=== PATIENT | female | born 1960 | race Caucasian/White ===

== ENCOUNTER 2017-07-22 15:53 | Emergency (ER) | payer MEDICARE, MEDICAID ==
[~2017-07-22] VITALS: Ht 144.8 cm; Wt 66.0 kg
[2017-07-22 19:35] LABS: BASOPHILS % 0.6 % (0.0-2.0); EOSINOPHILS % 1.2 % (0.0-5.0); HEMATOCRIT. 38.6 % (36.0-48.0); HEMOGLOBIN. 13.4 g/dL (12.0-16.0); MEAN CORPUSCULAR HEMOGLOBIN 29.7 pg (28.0-32.0); MEAN CORPUSCULAR VOLUME 85.7 fL (81.0-99.0); MEAN PLATELET VOLUME 9.7 fl (7.4-10.4); MONOCYTES % 5.5 % (2.0-8.0); NEUTROPHILS % 68.7 % (40.0-76.0); PLATELET 295 x1000/uL (130-400); RED BLOOD CELL COUNT 4.51 mill/uL (4.2-5.4); RED CELL DISTRIBUTION WIDTH 13.8 % (11.6-14.6)
[2017-07-22 19:36] LABS: CHLORIDE 105 mEq/L (98-107)
[2017-07-22] MEDS ORDERED: KETOROLAC 30MG/ML VIAL IV STA (21:12)
[2017-07-22] MEDS ORDERED: SODIUM CHLORIDE 0.9% 1,000 ML IV ONE (21:12)
[2017-07-22] MEDS ORDERED: ONDANSETRON HCL 4MG/2ML VIAL IV STA (21:12)
[2017-07-22 23:05] VITALS: BP 129/76
== END 2017-07-23 00:06 | disposition home or self-care (01) ==
LOC: ER 15:53
DX: R51 Headache (principal); I10 Essential (primary) hypertension; E11.9 Type 2 diabetes mellitus without complications; E78.5 Hyperlipidemia, unspecified; E78.00 Pure hypercholesterolemia, unspecified
CPT/HCPCS: 36415; 80048; 83690; 85025; 96361; 96374; 96375; 99285; J1885; J2405; J7030

== ENCOUNTER 2017-08-22 08:57 | Emergency (ER) | payer MEDICARE, MEDICAID ==
[~2017-08-22] VITALS: Ht 154.9 cm; Wt 68.0 kg
[2017-08-22] MEDS ORDERED: MORPHINE SULFATE 4 MG/ML CPJ (NOT FOR IM USE) IV STA (09:37)
[2017-08-22] MEDS ORDERED: SODIUM CHLORIDE 0.9% 1,000 ML IV ONE (09:37)
[2017-08-22] MEDS ORDERED: KETOROLAC 30MG/ML VIAL IV STA (09:37)
[2017-08-22] MEDS ORDERED: ONDANSETRON HCL 4MG/2ML VIAL IV STA (09:37)
[2017-08-22 10:10] LABS: BASOPHILS % 0.3 % (0.0-2.0); EOSINOPHILS % 0.6 % (0.0-5.0); HEMATOCRIT. 41.4 % (36.0-48.0); HEMOGLOBIN. 14.1 g/dL (12.0-16.0); LYMPHOCYTES % 10.8 % (20.0-50.0); MEAN CORPUSCULAR HEMOGLOBIN 28.8 pg (28.0-32.0); MEAN CORPUSCULAR VOLUME 84.9 fL (81.0-99.0); MEAN PLATELET VOLUME 9.3 fl (7.4-10.4); MONOCYTES % 5.7 % (2.0-8.0); NEUTROPHILS % 82.6 % (40.0-76.0); PLATELET 264 x1000/uL (130-400); RED BLOOD CELL COUNT 4.88 mill/uL (4.2-5.4); RED CELL DISTRIBUTION WIDTH 13.8 % (11.6-14.6)
[2017-08-22 10:13] LABS: CHLORIDE 103 mEq/L (98-107)
[2017-08-22 10:41] LABS: CLARITY URINE CLOUDY (CLEAR); COLOR URINE DARK YELLOW (YELLOW); KETONES URINE TRACE (NEGATIVE); LEUKOCYTE ESTERASE URINE TRACE (NEGATIVE); NITRITE URINE NEGATIVE (NEGATIVE); OCCULT BLOOD URINE NEGATIVE (NEGATIVE); PROTEIN URINE 2+ (NEGATIVE)
[2017-08-22 12:00] VITALS: BP 122/71
== END 2017-08-22 12:39 | disposition home or self-care (01) ==
LOC: ER 09:53
DX: G43.909 Migraine, unspecified, not intractable, without status migrainosus (principal); N39.0 Urinary tract infection, site not specified; E78.00 Pure hypercholesterolemia, unspecified; I10 Essential (primary) hypertension; E11.9 Type 2 diabetes mellitus without complications
CPT/HCPCS: 36415; 70450; 71045; 80053; 81003; 82962; 83880; 85025; 85651; 93005; 96361; 96374; 96375; 99285; J1885; J2270; J2405; J7030

== ENCOUNTER 2019-06-11 09:01 | Emergency (ER) | payer MEDICARE, MEDICAID ==
[~2019-06-11] VITALS: Ht 154.9 cm; Wt 69.0 kg
[2019-06-11] MEDS ORDERED: KETOROLAC 60MG/2ML VIAL IM STA (11:19)
[2019-06-11] MEDS ORDERED: ONDANSETRON 4MG ODT PO STA (11:19)
[2019-06-11 12:47] LABS: HEMATOCRIT. 39.3 % (36.0-48.0); HEMOGLOBIN. 13.7 g/dL (12.0-16.0); LYMPHOCYTES % 28.5 % (20.0-50.0); MEAN CORPUSCULAR HEMOGLOBIN 29.4 pg (28.0-32.0); MEAN CORPUSCULAR VOLUME 84.4 fL (81.0-99.0); MEAN PLATELET VOLUME 10.5 fl (7.4-10.4); MONOCYTES % 8.4 % (2.0-8.0); NEUTROPHILS % 60.1 % (40.0-76.0); PLATELET 209 x1000/uL (130-400); RED BLOOD CELL COUNT 4.65 mill/uL (4.2-5.4)
[2019-06-11 12:53] LABS: CHLORIDE 106 mEq/L (98-107)
[2019-06-11 13:41] VITALS: BP 132/65
== END 2019-06-11 13:43 | disposition home or self-care (01) ==
LOC: ER 09:01
DX: R51 Headache (principal); E11.9 Type 2 diabetes mellitus without complications; E78.00 Pure hypercholesterolemia, unspecified; I10 Essential (primary) hypertension
CPT/HCPCS: 36415; 70450; 80053; 85025; 96372; 99284; J1885; Q0162

== ENCOUNTER → 2022-05-22 | Outpatient (CLI) | payer MEDICARE, MEDICAID ==
[~2022-05-22] MED LIST: ASPI-1497 MT; ATOR40TA70 MT
[2022-05-22 08:56] LABS: BASOPHILS % 0.3 % (0.0-2.0); EOSINOPHILS % 3.4 % (0.0-5.0); HEMATOCRIT. 37.9 % (36.0-48.0); HEMOGLOBIN. 12.5 g/dL (12.0-16.0); LYMPHOCYTES % 28.8 % (20.0-50.0); MEAN CORPUSCULAR HEMOGLOBIN 27.9 pg (28.0-32.0); MEAN CORPUSCULAR VOLUME 84.8 fL (81.0-99.0); MEAN PLATELET VOLUME 9.6 fl (7.4-10.4); MONOCYTES % 6.7 % (2.0-8.0); NEUTROPHILS % 60.8 % (40.0-76.0); PLATELET 220 x1000/uL (130-400); RED BLOOD CELL COUNT 4.48 mill/uL (4.2-5.4); RED CELL DISTRIBUTION WIDTH 14.2 % (11.6-14.6)
[2022-05-22 09:17] LABS: CHLORIDE 110 mEq/L (98-107)
[2022-05-22 09:27] LABS: HDL CHOLESTEROL 66 mg/dL (40-59); LDL CHOLESTEROL 94 mg/dL (5-100)
== END | disposition home or self-care (01) ==
LOC: RAD 08:13
PROVIDERS: ATTEND Internal Medicine Interventional Cardiology
DX: J98.11 Atelectasis (principal); I25.10 Atherosclerotic heart disease of native coronary artery without angina pectoris; I21.4 Non-ST elevation (NSTEMI) myocardial infarction
CPT/HCPCS: 36415; 71045; 80048; 80061; 83735; 83880; 85025

== ENCOUNTER → 2022-06-03 | Outpatient (CLI) | payer MEDICARE, MEDICAID | END | disposition home or self-care (01) | LOC: LAB 08:59 | PROVIDERS: ATTEND Internal Medicine Interventional Cardiology | DX: I25.10 Atherosclerotic heart disease of native coronary artery without angina pectoris (principal) | CPT/HCPCS: 36415; 80048; 83735; 83880 ==

== ENCOUNTER 2023-04-01 09:35 | Emergency (ER) | payer MEDICARE, MEDICAID ==
[~2023-04-01] VITALS: Ht 144.8 cm; Wt 63.5 kg
[~2023-04-01 09:35] MED LIST changes: +AMLO2.5T45 MT; -ASPI-1497 MT; +ATOR-2 MT; -ATOR40TA70 MT; +BISA10SU62 RC; +CLOP-31 MT; +EZET10TA81 MT; +GABA-529 PO; +METO-385 PO; +NITR100C11 PO; +PANT40TA51 PO; +TOPUD PO
[2023-04-01 09:37] VITALS: O2SAT 100
[2023-04-01 11:46] VITALS: BP 124/84; PULSE 89; RESP 16; TEMP 98.9
== END 2023-04-01 11:49 | disposition home or self-care (01) ==
LOC: ER 09:57
DX: J06.9 Acute upper respiratory infection, unspecified (principal); R09.89 Other specified symptoms and signs involving the circulatory and respiratory systems; E11.9 Type 2 diabetes mellitus without complications; E78.00 Pure hypercholesterolemia, unspecified; I10 Essential (primary) hypertension; F19.90 Other psychoactive substance use, unspecified, uncomplicated; Z86.73 Personal history of transient ischemic attack (TIA), and cerebral infarction without residual deficits; Z98.890 Other specified postprocedural states
CPT/HCPCS: 71045; 93005; 99283

== ENCOUNTER 2023-08-21 14:23 | Emergency (ER) | payer MEDICARE, MEDICAID ==
[~2023-08-21] VITALS: Ht 157.5 cm; Wt 81.0 kg
[~2023-08-21 14:23] MED LIST changes: +NITR0.4T SL
[2023-08-21 14:34] VITALS: O2SAT 97
[2023-08-21 14:56] LABS: BASOPHILS % 0.4 % (0.0-2.0); EOSINOPHILS % 2.4 % (0.0-5.0); HEMATOCRIT. 37.4 % (36.0-48.0); HEMOGLOBIN. 12.6 g/dL (12.0-16.0); LYMPHOCYTES % 29.6 % (20.0-50.0); MEAN CORPUSCULAR HEMOGLOBIN 29.5 pg (28.0-32.0); MEAN CORPUSCULAR HGB CONC 33.7 g/dL (31.0-37.0); MEAN CORPUSCULAR VOLUME 87.4 fL (81.0-99.0); MEAN PLATELET VOLUME 10.1 fl (7.4-10.4); MONOCYTES % 7.5 % (2.0-8.0); NEUTROPHILS % 60.1 % (40.0-76.0); PLATELET 260 x1000/uL (130-400); RED BLOOD CELL COUNT 4.28 mill/uL (4.2-5.4); RED CELL DISTRIBUTION WIDTH 14.2 % (11.6-14.6); WHITE BLOOD COUNT 8.7 x1000/uL (4.5-11.0)
[2023-08-21 15:00] LABS: CARBON DIOXIDE 25 mEq/L (21-32); CHLORIDE 105 mEq/L (98-107); POTASSIUM 3.8 mEq/L (3.5-5.1); SODIUM 138 mEq/L (136-145)
[2023-08-21 15:01] LABS: CALCIUM 9.3 mg/dL (8.7-10.4)
[2023-08-21 15:05] LABS: GLUCOSE 154 mg/dL (70-105)
[2023-08-21 15:06] LABS: UREA NITROGEN BLOOD 12 mg/dL (9-23)
[2023-08-21 15:11] LABS: TROPONIN I HIGH SENSITIVITY < 4 ng/L (3.0-34)
[2023-08-21 17:30] VITALS: TEMP 97.7
[2023-08-21] MEDS: MORPHINE SULFATE 4 MG/ML INJ (FOR IV/IM USE) IV STA (17:31)
[2023-08-21] MEDS: ONDANSETRON HCL 4MG/2ML INJ IV STA (17:31)
[2023-08-21] MEDS: ASPIRIN 81MG TABLET PO ONE (17:45)
[2023-08-21 18:35] LABS: TROPONIN I HIGH SENSITIVITY < 4 ng/L (3.0-34)
[2023-08-21] MEDS ORDERED: IOHEXOL-350 100 ML BOTTLE ONE (20:07)
[2023-08-21 20:24] VITALS: BP 146/62; PULSE 61; RESP 16
== END 2023-08-21 20:14 | disposition home or self-care (01) ==
LOC: ER 14:23 → CANBEDREQ 19:59 → ER 20:14
DX: R07.89 Other chest pain (principal); E11.9 Type 2 diabetes mellitus without complications; E78.00 Pure hypercholesterolemia, unspecified; I10 Essential (primary) hypertension; Z86.73 Personal history of transient ischemic attack (TIA), and cerebral infarction without residual deficits; Z79.899 Other long term (current) drug therapy
CPT/HCPCS: 99285; 96374; 71275; 71045; 96375; 80048; 85025; 85379; 84484; 36415; 93005; Q9967; J2405; J2270

== ENCOUNTER → 2023-09-18 | Outpatient (CLI) | payer MEDICARE, MEDICAID ==
[~2023-09-18] MED LIST changes: +ONDANSETRON HCL 4MG/2ML INJ ONE; +REGADENOSON 0.4 MG/5 ML IV ONE
== END | disposition home or self-care (01) ==
LOC: RAD 07:27
PROVIDERS: ATTEND Internal Medicine Interventional Cardiology
DX: I20.0 Unstable angina (principal); R07.9 Chest pain, unspecified
CPT/HCPCS: 78452; 93017; J2785; A9500; J2405

== ENCOUNTER → 2023-10-14 | Outpatient (CLI) | payer MEDICARE, MEDICAID ==
[~2023-10-14] MED LIST changes: -ONDANSETRON HCL 4MG/2ML INJ ONE; -REGADENOSON 0.4 MG/5 ML IV ONE
== END | disposition home or self-care (01) ==
LOC: CARD 07:57
PROVIDERS: ATTEND Internal Medicine Interventional Cardiology
DX: I35.8 Other nonrheumatic aortic valve disorders (principal); R07.9 Chest pain, unspecified; I20.9 Angina pectoris, unspecified
CPT/HCPCS: 93306

== ENCOUNTER 2023-11-16 14:52 | Emergency (ER) | payer MEDICARE, MEDICAID ==
[~2023-11-16] VITALS: Ht 144.8 cm; Wt 66.0 kg
[2023-11-16 15:22] VITALS: TEMP 98.4; O2SAT 98
[2023-11-16] MEDS ORDERED: ACETAMINOPHEN 325MG TABLET PO ONE (16:15)
[2023-11-16] MEDS: ACETAMINOPHEN 325MG TABLET PO NR (17:53)
[2023-11-16 17:57] VITALS: BP 158/92; PULSE 61; RESP 16; O2SAT 98
== END 2023-11-16 17:58 | disposition home or self-care (01) ==
LOC: ER 14:52
DX: M25.512 Pain in left shoulder (principal); M25.552 Pain in left hip; E78.00 Pure hypercholesterolemia, unspecified; I10 Essential (primary) hypertension; Z86.73 Personal history of transient ischemic attack (TIA), and cerebral infarction without residual deficits; Z79.899 Other long term (current) drug therapy; W18.39XA Other fall on same level, initial encounter; Y93.89 Activity, other specified; Y92.89 Other specified places as the place of occurrence of the external cause; Y99.8 Other external cause status
CPT/HCPCS: 73030; 73502; 99284

== ENCOUNTER 2024-08-26 13:45 | Emergency (ER) | payer MEDICARE, MEDICAID ==
[~2024-08-26] VITALS: Ht 144.8 cm; Wt 66.0 kg
[2024-08-26] MEDS: ACETAMINOPHEN 325MG TABLET PO ONE (17:06)
[2024-08-26] MEDS: KETOROLAC 30MG/ML VIAL IM ONE (18:58)
[2024-08-26] MEDS ORDERED: LIDO700A30 TP (19:40)
[2024-08-26] MEDS ORDERED: IBUP-2029 MT (19:40)
[2024-08-26 20:00] VITALS: BP 150/71; PULSE 66; RESP 18; TEMP 36.6; O2SAT 98
== END 2024-08-26 20:03 | disposition home or self-care (01) ==
LOC: ER 13:45
DX: G89.29 Other chronic pain (principal); M54.42 Lumbago with sciatica, left side; I10 Essential (primary) hypertension; E78.00 Pure hypercholesterolemia, unspecified; Z86.73 Personal history of transient ischemic attack (TIA), and cerebral infarction without residual deficits; Z79.899 Other long term (current) drug therapy
CPT/HCPCS: 99285; 93971; 81025; 72100; 96372; J1885

== ENCOUNTER 2024-11-16 11:11 | Emergency (ER) | payer MEDICARE, MEDICAID ==
[~2024-11-16] VITALS: Ht 134.6 cm; Wt 63.0 kg
[~2024-11-16 11:11] MED LIST changes: +IBUP-2029 MT; +LIDO700A30 TP
[2024-11-16 11:24] VITALS: TEMP 36.7; O2SAT 97
[2024-11-16] MEDS: IBUPROFEN 400MG TABLET PO ONE (12:54)
[2024-11-16] MEDS ORDERED: IBUP-2028 MT (13:15)
[2024-11-16 13:35] VITALS: BP 139/74; PULSE 73; RESP 18; O2SAT 97
== END 2024-11-16 13:36 | disposition home or self-care (01) ==
LOC: ER 11:11
DX: M25.562 Pain in left knee (principal); E11.9 Type 2 diabetes mellitus without complications; E78.00 Pure hypercholesterolemia, unspecified; I10 Essential (primary) hypertension; Z79.899 Other long term (current) drug therapy; Z86.73 Personal history of transient ischemic attack (TIA), and cerebral infarction without residual deficits; Z95.1 Presence of aortocoronary bypass graft
CPT/HCPCS: 73562; 99283

== ENCOUNTER → 2025-03-13 | Outpatient (CLI) | payer MEDICARE, MEDICAID ==
[~2025-03-13] MED LIST changes: +IBUP-1455 MT; +IBUP-2028 MT; -IBUP-2029 MT
== END | disposition home or self-care (01) ==
LOC: CARD 08:58
PROVIDERS: ATTEND Internal Medicine Cardiovascular Disease
DX: I07.1 Rheumatic tricuspid insufficiency (principal); I27.20 Pulmonary hypertension, unspecified; I51.7 Cardiomegaly; R06.00 Dyspnea, unspecified; R05.9 Cough, unspecified
CPT/HCPCS: 93306